=== PATIENT | female | born 1955 | race Caucasian/White ===

== ENCOUNTER 2016-11-07 07:08 | Day surgery (SDC) | payer OTHER ==
[~2016-11-07 07:08] MED LIST: Acetaminophen TAB* 325 MG PO PRN; Buffered Lidocaine 0.9% SYRIN* 5 ML/SYR SYRINGE INTRADERM ONE
[2016-11-07] MEDS ORDERED: Midazolam* 1 MG/ML 2 ML VIAL (2 MG) ONE ×2 (08:00→09:04)
[2016-11-07] MEDS ORDERED: fentaNYL* 50 MCG/ML 2 ML VIAL (100 MCG VIAL) ONE (08:00)
[2016-11-07 09:23] VITALS: BP 100/86
--- NOTE | 2016-11-07 10:26 | OP ---
DATE OF OPERATION: 11/07/2016 - [facility] DATE OF : 1955. SURGEON: Kale Ferrari M.D. PREOPERATIVE DIAGNOSIS: Cataract left eye. POSTOPERATIVE DIAGNOSIS: Cataract left eye. OPERATIVE PROCEDURE: Phacoemulsification left eye with IOL. DESCRIPTION OF PROCEDURE: The patient was brought to the operating room after being given 1/2% Alcaine with epinephrine drops in the preoperative area. The eye was prepped and draped in the usual sterile fashion. Sterile drape and eyelid speculum were placed. Again, topical 1/2% Alcaine with epinephrine was given. A paracentesis incision was made at the 3 o'clock position with the No.75 blade. Clear cornea incision 2.2 x 2.2-mm was created at the 6 o'clock position starting at the anterior limbus using the 2.2-mm keratome. The anterior chamber was irrigated with 0.4 mL of 1% non-preservative intracameral lidocaine and filled with DisCoVisc. A capsulorrhexis was completed using the cystotome and the Utrata forceps. Hydrodissection was performed with balanced salt solution. The lens nucleus was removed with the Phacoemulsification handpiece without incident. Cortex was removed with the irrigation-aspiration handpiece. The capsular bag was re-inflated using DisCoVisc and an SN60WF 18.5 implant was inserted with the shooter. The irrigation-aspiration handpiece was used to remove all residual DisCoVisc. The eye was refilled with balanced salt solution and the wound checked and found to be watertight. Topical Maxitrol drops were given. [id number]/[facility] #: [id number] MTDD
[2016-11-07] MEDS ORDERED: Cyclopentolate 1% OPTH.SOL* 2 ML BTL ONE (13:26)
[2016-11-07] MEDS ORDERED: Lidocaine 1% MPF* 2 ML VIAL ONE (13:26)
[2016-11-07] MEDS ORDERED: acetaZOLAMIDE TAB* 250 MG ONE (13:26)
[2016-11-07] MEDS ORDERED: Proparacaine 0.5% OPHTH.SOL* 15 ML BTL ONE (13:26)
[2016-11-07] MEDS ORDERED: Neomycin/Polymy/Dex OPTH.SUSP* MAXITROL 0.1% 5 ML ONE (13:26)
[2016-11-07] MEDS ORDERED: Flurbiprofen 0.03% OPTH.SOL* 2.5 ML BTL ONE (13:26)
[2016-11-07] MEDS ORDERED: Povidone Iodine 5% OPTH* 30 ML BTL ONE (13:26)
[2016-11-07] MEDS ORDERED: Buffered Lidocaine 0.9% SYRIN* 5 ML/SYR SYRINGE ONE (13:26)
[2016-11-07] MEDS ORDERED: Lidocaine 2% EPI 1:200000 MPF* 20 ML VIAL ONE (13:26)
[2016-11-07] MEDS ORDERED: Phenylephrine 2.5% OPTH.SOL* 2 ML BTL ONE (13:26)
== END 2016-11-07 09:34 | disposition home or self-care (01) ==
LOC: OREAST 07:08
PROVIDERS: ATTEND Specialist
DX: H25.812 Combined forms of age-related cataract, left eye (principal); E11.9 Type 2 diabetes mellitus without complications; Z87.891 Personal history of nicotine dependence
CPT/HCPCS: A9270-GY; J2250; J3010; V2632

== ENCOUNTER 2016-11-14 12:52 | Day surgery (SDC) | payer OTHER ==
[2016-11-14] MEDS ORDERED: Midazolam* 1 MG/ML 5 ML VIAL (5 MG) ONE (14:48)
[2016-11-14] MEDS ORDERED: Flurbiprofen 0.03% OPTH.SOL* 2.5 ML BTL ONE (15:00)
[2016-11-14] MEDS ORDERED: Lidocaine 1.5% EPI 1:200,000* 30 ML SDV ONE (15:00)
[2016-11-14] MEDS ORDERED: Neomycin/Polymy/Dex OPTH.SUSP* MAXITROL 0.1% 5 ML ONE (15:00)
[2016-11-14] MEDS ORDERED: Lidocaine 1% MPF* 2 ML VIAL ONE (15:00)
[2016-11-14] MEDS ORDERED: Buffered Lidocaine 0.9% SYRIN* 5 ML/SYR SYRINGE ONE (15:00)
[2016-11-14] MEDS ORDERED: Phenylephrine 2.5% OPTH.SOL* 2 ML BTL ONE (15:00)
[2016-11-14] MEDS ORDERED: Proparacaine 0.5% OPHTH.SOL* 15 ML BTL ONE (15:00)
[2016-11-14] MEDS ORDERED: Povidone Iodine 5% OPTH* 30 ML BTL ONE (15:00)
[2016-11-14] MEDS ORDERED: Cyclopentolate 1% OPTH.SOL* 2 ML BTL ONE (15:00)
[2016-11-14] MEDS ORDERED: acetaZOLAMIDE TAB* 250 MG ONE (15:00)
[2016-11-14 15:31] VITALS: BP 146/76
--- NOTE | 2016-11-15 13:27 | OP ---
DATE OF OPERATION: 11/14/16 [facility] DATE OF : 55 SURGEON: Kale Ferrari M.D. PREOPERATIVE DIAGNOSIS: Cataract, right eye. POSTOPERATIVE DIAGNOSIS: Cataract, right eye. OPERATIVE PROCEDURE: Phacoemulsification, right eye, with IOL. DESCRIPTION OF PROCEDURE: The patient was brought to the operating room after being given 1/2% Alcaine with epinephrine drops in the preoperative area. The eye was prepped and draped in the usual sterile fashion. Sterile drape and eyelid speculum were placed. Again, topical 1/2% Alcaine with epinephrine was given. A paracentesis incision was made at the 9 o'clock position with the No.75 blade. Clear cornea incision 2.2 x 2.2-mm was created at the 12 o'clock position starting at the anterior limbus using the 2.2-mm keratome. The anterior chamber was irrigated with 0.4 mL of 1% non-preservative intracameral lidocaine and filled with DisCoVisc. A capsulorrhexis was completed using the cystotome and the Utrata forceps. Hydrodissection was performed with balanced salt solution. The lens nucleus was removed with the Phacoemulsification handpiece without incident. Cortex was removed with the irrigation-aspiration handpiece. The capsular bag was re-inflated using DisCoVisc and an SN60WF 18.5 implant was inserted with the shooter. The irrigation-aspiration handpiece was used to remove all residual DisCoVisc. The eye was refilled with balanced salt solution and the wound checked and found to be watertight. Topical Maxitrol drops were given. [id number]/[facility] #: [id number] MTDD
== END 2016-11-14 15:45 | disposition home or self-care (01) ==
LOC: OREAST 12:52
PROVIDERS: ATTEND Specialist
DX: H25.811 Combined forms of age-related cataract, right eye (principal); E11.9 Type 2 diabetes mellitus without complications; J45.909 Unspecified asthma, uncomplicated
CPT/HCPCS: A9270-GY; J2250; V2632

== ENCOUNTER 2018-03-19 07:25 | Day surgery (SDC) | payer OTHER ==
--- NOTE | 2018-03-05 20:16 | HP ---
PREOPERATIVE HISTORY AND PHYSICAL: DATE OF ADMISSION/SURGERY: 03/19/18 DATE OF OFFICE VISIT: 03/04/18 ATTENDING SURGEON: Dr. Sofiya Fong.* (DICTATED BY BENNIE BAGLEY) PROCEDURE: Left hamstring repair with possible allograft, possible sciatic neurolysis. CHIEF COMPLAINT: Left hamstring pain. HISTORY OF PRESENT ILLNESS: Fifi is a 62-year-old female, who presents to the clinic for left hamstring pain due to an injury. She has failed conservative measures to include physical therapy, anti-inflammatories and has therefore agreed to undergo a left hamstring repair with possible allograft, possible sciatic neurolysis with Dr. Fong on 03/19/18. PAST MEDICAL HISTORY: Osteoarthritis, type 2 diabetes, degenerative disk disease of her C-spine, depression, celiac disease, and fatty liver disease. PAST SURGICAL HISTORY: Tonsillectomy and adenoidectomy, hysterectomy, and tubal ligation. The patient denies prior complications with anesthesia. MEDICATIONS: 1. Janumet mg 1 daily. 2. Farxiga 5 mg 1 daily. 3. Fluoxetine 40 mg 1 daily. 4. Zolpidem tartrate 10 mg 1 daily. 5. Meloxicam 15 mg 1 by mouth daily as needed. 6. Omeprazole 20 mg 1 by mouth every day. ALLERGIES: HYDROCODONE. FAMILY HISTORY: Positive for diabetes and DVT in her father after surgery and DVT in her daughter in her arm due to hormone therapy. SOCIAL HISTORY: She lives alone. She is a nurse. She is a former smoker, although quit 15 years ago. She smoked for a total of 10 years. She reports rare alcohol consumption. She exercises regularly. She is right-hand dominant. REVIEW OF SYSTEMS: A 14-point review of systems was reviewed with the patient. Positive for current complaint, otherwise negative. Denies fever, chills, personal history of DVT or PE, chest pain, shortness of breath, history of bleeding disorder. PHYSICAL EXAMINATION GENERAL: A 62-year-old well-developed, well-nourished female, in no acute distress. Alert and oriented x3. Appropriate mood and affect. Appropriate balance and coordination of her upper and lower extremities. VITAL SIGNS: Height 65, weight 142, pulse 78, blood pressure 136/70, respiratory rate 20, BMI 23.6. HEENT: Normocephalic, atraumatic. PERRLA. Throat clear. NECK: Supple. PULMONARY: Lungs are clear to auscultation bilaterally. No wheezing, rhonchi, or rales. CARDIO: Regular rate and rhythm. S1, S2. No murmurs, gallops, or rubs. No edema. ABDOMEN: Positive bowel sounds. Soft, nontender. NEURO: Alert and oriented x3. Cranial nerves grossly intact. Sensation intact to light touch. MUSCULOSKELETAL: Left lower extremity: Skin is intact. No warmth or erythema. Tenderness over the proximal hamstring. Full range of motion of the hip, knee, and ankle. +5/5 strength to ankle dorsiflexion and plantarflexion. +2 DP pulse. Calf soft, nontender. Sensation intact to light touch distally. DIAGNOSTIC STUDIES: MRI of the left leg revealed a complete tear of the semitendinosus, semimembranosus and biceps femoris with 4 cm of retraction. IMPRESSION: Left proximal hamstring tear. PLAN: The patient is scheduled to undergo a left hamstring repair with possible allograft and possible sciatic neurolysis with Dr. Fong on 03/19/18. Percocet will be used for postop pain management. She will be placed in a knee AROM brace postoperatively. DVT prophylaxis, she will be treated with Lovenox for 2 weeks postop due to her family history. She will be nonweightbearing postoperatively and Keflex will be used for 3 days postoperatively for antibiotic prophylaxis. She will follow up in 10 to 14 days postop for followup and suture removal. BENNIE BAGLEY [id number]/[facility] #: [id number] GEORGE
[~2018-03-19 07:25] MED LIST changes: -Acetaminophen TAB* 325 MG PO PRN
[2018-03-19] MEDS ORDERED: ceFAZolin 2 GM PREMIX in ORs 2 GM/50 ML BAG IVPB ONE (08:14)
[2018-03-19] MEDS ORDERED: Morphine VIAL* 10 MG/ML 1 ML VIAL ONE (08:14)
[2018-03-19] MEDS ORDERED: Dexamethasone IV* 4 MG/ML 1 ML (4 MG) ONE (08:47)
[2018-03-19] MEDS ORDERED: fentaNYL* 50 MCG/ML 2 ML VIAL (100 MCG VIAL) ONE ×2 (08:47→10:39)
[2018-03-19] MEDS ORDERED: Atracurium* 10 MG/ML 10 ML VIAL ONE (08:47)
[2018-03-19] MEDS ORDERED: Propofol* 10 MG/ML 20 ML BTL IV PUSH ONE (08:47)
[2018-03-19] MEDS ORDERED: Midazolam* 1 MG/ML 5 ML VIAL (5 MG) ONE (08:47)
[2018-03-19] MEDS ORDERED: Scopolamine 1.5 mg* PATCH ONE ×2 (10:19→10:24)
[2018-03-19] MEDS ORDERED: EPHEDrine (Pressors)* 50 MG/ML VIAL ONE (10:50)
[2018-03-19] MEDS ORDERED: Naloxone* 0.4 MG/ML 1 ML VIAL IV PRN (10:53)
[2018-03-19] MEDS ORDERED: DiMENhydriNATE IV* 50 MG/ML VIAL IV PUSH PRN (10:53)
[2018-03-19] MEDS ORDERED: oxyCODONE/Acetamin 5/325 MG* TAB PO PRN (10:53)
[2018-03-19] MEDS ORDERED: HYDROmorphone INJ1* 1 MG/ML SYRINGE IV PRN (10:53)
[2018-03-19] MEDS ORDERED: Ondansetron INJ* 2 MG/ML VIAL IV PRN (10:53)
[2018-03-19] MEDS ORDERED: fentaNYL* 50 MCG/ML 2 ML VIAL (100 MCG VIAL) IV PRN (10:53)
[2018-03-19] MEDS ORDERED: Bupivacaine 0.25% SDV PF* 10 ML VIAL INJ ONE (11:46)
[2018-03-19] MEDS ORDERED: Ondansetron INJ* 2 MG/ML VIAL ONE (11:55)
[2018-03-19] MEDS ORDERED: Ketorolac INJ* 30 MG/ML 1 ML VIAL ONE (11:55)
[2018-03-19] MEDS ORDERED: oxyCODONE/Acetamin 5/325 MG* TAB ONE (13:28)
[2018-03-19 14:54] VITALS: BP 144/72
--- NOTE | 2018-03-20 09:01 | OP ---
CC: PCP OPERATIVE REPORT: DATE OF OPERATION: 03/19/18. DATE OF : 55. SURGEON: Sofiya Fong M.D. PATTERN CARRIER: BENNIE Verduzco as well as Zandra Szymanski. Assistants were needed for the entirety of the case to help with positioning, retraction, and utilized throughout all portions of the case. ANESTHESIOLOGIST: Dr. Palomares. ANESTHESIA: General. PRE-OP DIAGNOSIS: Left chronic retracted hamstring rupture. POST-OP DIAGNOSIS: Left chronic retracted hamstring rupture. OPERATIVE PROCEDURE: 1. Left hip primary hamstring repair. 2. Sciatic nerve neurolysis. COMPLICATIONS: None. ESTIMATED BLOOD LOSS: Minimal. IMPLANTS USED: Five 2.9 mm Bioraptors. INDICATIONS: Fifi Nunez is a 63-year-old female, who sustained injury earlier about 6 months ago when she fell and she tore her hamstrings, the diagnosis was delayed first time. She has persistent pain with sitting comfortably. She has cramping that radiates down her legs. She has elected to proceed with surgical treatment. Risks and benefits were discussed at length to include but not limited to, bleeding; infection; damage to nerves, vessels, surrounding structures; wound nonhealing; persistent pain; need for further surgery; scarring; stiffness; incomplete relief of symptoms; risks of anesthesia as well as failure of the repair, persistent pain, risk of DVT. She has a family history and we will place her on Lovenox postoperatively. The patient has elected to proceed with surgical treatment. DESCRIPTION OF PROCEDURE: The patient was greeted in the preoperative area by the attending surgeon. Correct extremity was marked and the consent was confirmed. The patient was brought back to the operating suite, where first she was intubated on the stretcher and then she was placed in the prone position with all bony prominences padded. She was placed in the Jackknife position. The left leg was then prepped and draped in usual sterile fashion beginning with chlorhexidine soap, scrub, and alcohol wipe and a final prep with ChloraPrep. After appropriate surgical pause indicating site, side, procedure, and administration of antibiotics, a longitudinal incision beginning at the inferior crease, inferior to the ischial tuberosity was then made with 15 blade. The soft tissue was carefully dissected to expose the fat, which was carefully dissected. The hamstrings were first located distally and then traveled proximally. Attention was directed to the sciatic nerve, which was scarred into the torn hamstrings. Once this was identified, particularly distally and then tracked proximally, any adhesions were carefully removed to allow for to lie freely. This was done under loupe magnification. Once the nerve was completely released, it was protected for the entirety of the case. After this, attention was directed the hamstring. Hamstring tendon was scarred approximately 4 to 5 cm distally. This was tagged with #5 Ethibond suture and then carefully released of all adhesions. As this was done the tendon was carefully freed up, was able to be reapproximated to the footprint. Decision was made to not to have to use an allograft augment for this. Once the hamstring was freed up and was able to be mobilized, attention was directed to the ischial tuberosity with the retractor. Blunt retractors were placed, one inferior to the buttocks that was placed over the superior aspect of the ischial tuberosity, one medially and one laterally. The electrocautery device was used to expose the ischial tuberosity. The nerve was repaired and checked throughout all portions periodically throughout all time of the case, there was no tension on the nerve. The ischium was then prepared using electrocautery device and the Alford elevator, and an osteotome was then gently fishtailed to allow for viji bleeding bed. Once this was done, 5 Bioraptors were placed in a, sort of a pentagon type position along the ischial tuberosity. These were placed with excellent purchase. The sutures were then passed through the tendon and across to encompass the entire footprint. After this was done, beginning with the inferior sutures, these were then tied first and then the reminder of the sutures were then tied sequentially. This helped to approximate the hamstring. The knee was taken through range of motion and there was adequate amount of tension. No evidence of overstretching. The sciatic nerve was visualized to be free and not in the scar tissue. The wounds were copiously irrigated with sterile saline. The incisions were closed in layers with 2-0 Vicryl and 3-0 Monocryl. Sterile dressings were applied. A hinged knee brace that is locked at about 30 degrees was then placed. She was awoken from anesthesia, transferred to PACU in stable condition. POSTOPERATIVE PLAN: She will be discharged on pain medication. DVT prophylaxis was considered. She will get Lovenox for 2 weeks and then transfer to aspirin for 4 weeks after that, and she would be toe-touch weightbearing. We will start physical therapy in approximately 2 weeks. She is not allowed any hip flexion nor any knee flexion and extension. I will see the patient back in 10 to 14 days. [id number]/[facility] #: [id number] MTDD
[2018-03-22] MEDS ORDERED: Scopolamine PATCH Remove* 1 NOTE MISC PATCH OFF ONE (10:54)
== END 2018-03-19 14:57 | disposition home or self-care (01) ==
LOC: OR 07:25
PROVIDERS: ATTEND Orthopaedic Surgery
DX: S76.312A Strain of muscle, fascia and tendon of the posterior muscle group at thigh level, left thigh, initial encounter (principal); E11.9 Type 2 diabetes mellitus without complications; Z79.84 Long term (current) use of oral hypoglycemic drugs; M19.90 Unspecified osteoarthritis, unspecified site; K76.0 Fatty (change of) liver, not elsewhere classified; K90.0 Celiac disease; Z87.891 Personal history of nicotine dependence; W19.XXXA Unspecified fall, initial encounter; Y92.9 Unspecified place or not applicable
CPT/HCPCS: A9270-GY; J0690; J1100; J1885; J2250; J2270; J2405; J2704; J3010; J3490

== ENCOUNTER → 2018-10-09 14:36 | Day surgery (SDC) | payer OTHER ==
[~2018-10-09 14:36] MED LIST changes: -Buffered Lidocaine 0.9% SYRIN* 5 ML/SYR SYRINGE INTRADERM ONE; +Buffered Lidocaine 1% SYRIN* 1 ML/SYRINGE INTRADERM ONE; +Bupivacaine 0.25% SDV* 30 ML ONE; +Lactated Ringers 1000 ML Bag* 1,000 ML IV SCH; +Midazolam* 1 MG/ML 2 ML VIAL (2 MG) ONE; +Naloxone* 0.4 MG/ML 1 ML VIAL IV PRN; +ceFAZolin 2 GM PREMIX in ORs 2 GM/50 ML BAG ONE; +fentaNYL* 50 MCG/ML 2 ML VIAL (100 MCG VIAL) ONE
[2018-10-09 18:45] VITALS: BP 128/85
--- NOTE | 2018-10-09 21:11 | OP ---
DATE OF OPERATION: 10/09/18 - [facility] DATE OF : 55 SURGEON: Donovan Aleman MD GEOCHEMIST: BENNIE Burger ANESTHESIOLOGIST: Dr. Hudson. ANESTHESIA: Local MAC. PRE-OP DIAGNOSIS: Partial right middle finger amputation to the finger tip secondary to dog bite. POST-OP DIAGNOSES: 1. Partial right middle finger amputation to the finger tip secondary to dog bite. 2. Significant nail bed injury. OPERATIVE PROCEDURE: 1. Revision amputation, right middle finger tip with local advancement, closure via V-Y flap. 2. Nail bed repair, right middle finger. INDICATIONS: Fifi had the dog bite. She had a transverse to slightly dorsal oblique wound. We talked about risks and benefits. She wanted to proceed with surgery. ESTIMATED BLOOD LOSS: 5 ml. COMPLICATIONS: None. FINDINGS: See above and below. DESCRIPTION OF PROCEDURE: Fifi was seen in the preoperative holding area. The correct site, side, and procedure were identified. We came back to the operating room where the arm was scrubbed, prepped and draped in the usual fashion. A time- out was performed. I had already numbed up the finger with 0.25% plain Marcaine. The arm was exsanguinated with Esmarch and a finger tourniquet was placed on the finger. I then went ahead and curetted off all of the soft tissue that was there over the tip of the bone. There was a lot of contamination. It was copiously irrigated out. I did a Betadine soak. I debrided it with a knife, the rongeur and the Ramsey blade. There was about 30% to 40% of sterile matrix. I went ahead and made that a nice transverse ending for the nail plate. There was a little bit of nail fragment that remained. That was excised. There was significant nail bed injury. I went ahead and repaired the nail bed with two 5-0 chromic gut sutures. After that, I went ahead and freed up the soft tissues around the bone. I used a bone cutter to make a nice transverse cut at the end of the bone and moving about 2 or 3 mm of bone. I took a little bit of time. Once I got all the foreign material out of the wound and everything was looking good, we had soaked the Betadine saline soak for a while , I went ahead and irrigated out the wound. I then checked the amount of skin I had, it was just a little shy of skin, so we did a V-Y advancement flap volarly by releasing the skin and subcutaneous tissue volarly and releasing it off the periosteum on the palmar aspect. I was unable to mobilize by leaving the digital arteries and nerves intact. I was unable to advance the flap about 3 to 4 mm enough closure. I went ahead and placed the chromic gut suture wrapper under the nail fold and sewed this into place. I then sewed down V-Y advancement flap with 4-0 nylon suture. This got excellent closure over the end of the wound. I contoured off the dog ears and I got everything looking nice. At this point, everything was looking good. I removed the finger tourniquet, the flap pinked up immediately. Finger tip was dressed with soft dressing and she was taken to recovery room in stable condition. [id number]/[facility] #: [id number] MTDD
== END | disposition home or self-care (01) ==
LOC: OREAST 14:36
PROVIDERS: ATTEND Orthopaedic Surgery Hand Surgery
DX: S68.622A Partial traumatic transphalangeal amputation of right middle finger, initial encounter (principal); W54.0XXA Bitten by dog, initial encounter; Y92.9 Unspecified place or not applicable; E11.9 Type 2 diabetes mellitus without complications; Z79.84 Long term (current) use of oral hypoglycemic drugs; J45.909 Unspecified asthma, uncomplicated; F41.8 Other specified anxiety disorders; M19.90 Unspecified osteoarthritis, unspecified site; M06.9 Rheumatoid arthritis, unspecified
CPT/HCPCS: J0690; J2250; J3010; J3490